=== PATIENT | female | born 1980 | race Two or more races ===

== ENCOUNTER 2017-08-07 16:45 | Emergency (ER) | payer OTHER ==
[~2017-08-07] VITALS: Ht 160 cm; Wt 99.8 kg
[2017-08-07 17:30] LABS: HEMATOCRIT 37.9 % (36.0-46.0); MCH 28.7 PG (29.0-34.0); MCV 84.2 FL (83-99); MEAN PLAT.VOLUME 9.6 uM^3 (9.5-12.4); PLATELET COUNT 313 K/uL (156-360); RBC DIS.WIDTH-CV 13.6 % (11.8-14.6); RBC DIS.WIDTH-SD 42.3 % (39-53); WHITE BLOOD COUNT 10.7 K/uL (4.1-10.2)
[2017-08-07 17:38] LABS: CHLORIDE 106 mEq/L (99-109); POTASSIUM 3.5 mEq/L (3.7-5.4); SODIUM 137 mEq/L (136-147)
[2017-08-07 17:40] LABS: GLUCOSE 90 mg/dL (70-99)
[2017-08-07 17:41] LABS: ANION GAP 9 MEQ/L (2-14)
[2017-08-07 17:42] LABS: TOTAL BILIRUBIN 0.1 mg/dL (0.0-1.0)
[2017-08-07 17:44] LABS: ALKALINE PHOSPHATASE 80 IU/L (3-129); GFR ESTIMATE (CALCULATED) > 59 mL/min/
[2017-08-07 17:45] LABS: UREA NITROGEN (BUN) 5 mg/dL (9-23)
[2017-08-07] MEDS ORDERED: ZANTAC150 MG PO (17:49)
[2017-08-07 17:58] LABS: ADD MIUA? YES; BILIRUBIN NEGATIVE; BLOOD SMALL; COLOR YELLOW ((YELLOW)); GLUCOSE (STRIP) NEGATIVE; KETONES NEGATIVE; LEUKOCYTES TRACE; NITRITE NEGATIVE; PROTEIN (STRIP) NEGATIVE; UROBILINOGEN 0.2 MG/DL (0.2-1.0)
[2017-08-07 18:05] LABS: BACTERIA RARE /HPF; EPITHELIAL CELLS RARE /HPF; MUCUS TRACE /LPF; RED BLOOD CELLS 0-5 /HPF (0-5); UCUL ADDED? NO; WHITE BLOOD CELLS 0-5 /HPF (0-5)
[2017-08-07 20:54] VITALS: BP 126/68
== END 2017-08-07 20:55 | disposition home or self-care (01) ==
LOC: EME 16:45
PROVIDERS: Nurse Practitioner Family
DX: O20.9 Hemorrhage in early pregnancy, unspecified (principal); O99.311 Alcohol use complicating pregnancy, first trimester; O26.891 Other specified pregnancy related conditions, first trimester; R10.2 Pelvic and perineal pain; Z3A.09 9 weeks gestation of pregnancy; O99.331 Smoking (tobacco) complicating pregnancy, first trimester; F17.210 Nicotine dependence, cigarettes, uncomplicated; Z71.6 Tobacco abuse counseling; Z87.19 Personal history of other diseases of the digestive system
CPT/HCPCS: 76801; 80053; 81003; 84702; 85027; 99281; 99284

== ENCOUNTER 2018-03-09 12:15 | Inpatient (IN) | payer OTHER ==
[2018-03-09] VITALS (12 sets, daily range): BP systolic 124–186; BP diastolic 67–105
[~2018-03-09] VITALS: Ht 160 cm; Wt 106.8 kg
[~2018-03-09 12:15] MED LIST: ZANTAC150 MG PO
[2018-03-09 12:41] LABS: BASOPHIL (%) 0.1 % (0-1); EOSINOPHIL (%) 0.3 % (0-5); HEMATOCRIT 33.6 % (36.0-46.0); IMMATURE GRANULOCYTE (%) 0.6 % (0.0-0.7); LYMPHOCYTE (%) 21.2 % (15-42); MCH 24.8 PG (29.0-34.0); MCHC 32.7 G/DL (30.0-36.0); MCV 75.7 FL (83-99); MONOCYTE (%) 5.9 % (3-12); MONOCYTE COUNT 0.9 K/uL (0-0.8); NEUTROPHIL (%) 71.9 % (45-76); NEUTROPHIL COUNT 10.3 K/uL (1.8-6.4); PLATELET COUNT 363 K/uL (156-360); RBC DIS.WIDTH-CV 16.6 % (11.8-14.6); RBC DIS.WIDTH-SD 44.2 % (39-53); RED BLOOD COUNT 4.44 M/uL (3.80-5.20); WHITE BLOOD COUNT 14.3 K/uL (4.1-10.2)
[2018-03-09] MEDS ORDERED: IBUPROFEN800 MG PO (15:37)
[2018-03-09] MEDS ORDERED: PRILOSEC OTC20 MG PO (19:21)
[2018-03-09] MEDS ORDERED: PRENATAL TABLE1 EAC3 PO (19:21)
[2018-03-10 07:26] VITALS: BP 141/84
[2018-03-10 14:57] VITALS: BP 125/72
[2018-03-10 22:34] VITALS: BP 138/88
[2018-03-11 07:37] VITALS: BP 145/87
[2018-03-11 07:49] VITALS: BP 176/93
[2018-03-11 07:51] VITALS: BP 137/68
== END 2018-03-11 12:14 | disposition home or self-care (01) | DRG 775 ==
LOC: LDRP-OP 12:15 → 2WEST 12:16 → LDRP-OP 04-08 06:31
PROVIDERS: Advanced Practice Midwife; Obstetrics & Gynecology Obstetrics
DX: O24.420 Gestational diabetes mellitus in childbirth, diet controlled (principal); O99.214 Obesity complicating childbirth; E66.9 Obesity, unspecified; Z37.0 Single live birth; Z3A.40 40 weeks gestation of pregnancy; O16.4 Unspecified maternal hypertension, complicating childbirth; I10 Essential (primary) hypertension; O70.0 First degree perineal laceration during delivery; O77.0 Labor and delivery complicated by meconium in amniotic fluid; O69.81X0 Labor and delivery complicated by cord around neck, without compression, not applicable or unspecified
CPT/HCPCS: 82948; 85025; J0595; J2590